=== PATIENT | male | born 1995 | race Caucasian/White ===

== ENCOUNTER 2016-11-20 05:24 | Day surgery (SDC) | payer OTHER ==
[2016-11-19 09:54] VITALS: BMI 27.2
[~2016-11-20] VITALS: Ht 182.9 cm; Wt 95.6 kg
[2016-11-20 05:50] VITALS: Ht 182.9 cm; Wt 95.6 kg
[2016-11-20 05:55] VITALS: BP 135/84; PULSE 66; RESP 18
[2016-11-20] MEDS ORDERED: CEFAZOLIN 2 GM/50 ML (PMX) 50 ML IVPB ONE (06:05)
[2016-11-20] MEDS ORDERED: TRIAMCINOLONE ACET 40 MG/ML INJ ONE (07:06)
[2016-11-20] MEDS ORDERED: BUPIVACAINE 0.25% (MPF) 30 ML INJ ONE (07:06)
[2016-11-20] MEDS ORDERED: GENTAMICIN 80 MG INJ ONE (07:06)
[2016-11-20] MEDS ORDERED: LIDOCAINE 1%/EPI 30 ML INJ ONE (07:06)
[2016-11-20] MEDS ORDERED: POLYMYXIN/BACITRACIN 1L IRRIG ONE (07:07)
[2016-11-20] MEDS ORDERED: MUPIROCIN 2% 15 GM CR ONE (07:07)
[2016-11-20] MEDS ORDERED: FENTAnyl 50 MCG/ML VIAL ONE (07:22)
[2016-11-20] MEDS ORDERED: PROPOFOL 20 ML ONE ×2 (07:22→08:17)
[2016-11-20] MEDS ORDERED: MIDAZOLAM 1 MG/ML 2 ML INJ ONE (07:22)
--- NOTE | 2016-11-20 07:45 | HPN ---
Date/Time of Note Date/Time of Note DATE: 11/20/16 TIME: 07:44 Interval H&P Admission Note Pt. seen H&P reviewed: No system changes ALON PHIPPS MD Nov 20, 2016 07:45
[2016-11-20] MEDS ORDERED: METOCLOPRAMIDE 10 MG INJ ONE (07:57)
[2016-11-20] MEDS ORDERED: DEXAMETHASONE 4 MG/ML 1 ML INJ ONE (07:57)
[2016-11-20] MEDS ORDERED: KETOROLAC 30 MG INJ ONE (07:57)
[2016-11-20] MEDS ORDERED: ONDANSETRON 4 MG INJ ONE (07:57)
[2016-11-20] MEDS ORDERED: CEFAZOLIN 1 GM INJ ONE (07:57)
[2016-11-20] MEDS: LACTATED RINGER'S 1,000 ML IV* SCH ×2 (08:24→09:06)
[2016-11-20] MEDS ORDERED: METOCLOPRAMIDE 10 MG INJ IV PRN (08:30)
[2016-11-20] MEDS ORDERED: DIPHENHYDRAMINE 50 MG INJ IV PRN (08:30)
[2016-11-20] MEDS ORDERED: MEPERIDINE 25 MG INJ IV PRN (08:30)
[2016-11-20] MEDS ORDERED: morphine (1 MG/ML) 10ML SYRINGE IV PRN ×3 (08:30)
[2016-11-20] MEDS ORDERED: ONDANSETRON 4 MG INJ IV PRN (08:30)
[2016-11-20] MEDS ORDERED: HYDROmorphONE (0.2 MG/ML) 10ML SYG IV PRN ×3 (08:30)
[2016-11-20 09:07] VITALS: BP 110/68; PULSE 70; RESP 14
[2016-11-20 09:12] VITALS: BP 112/69; PULSE 48; RESP 16
[2016-11-20 09:17] VITALS: BP 113/77; PULSE 50; RESP 16
--- NOTE | 2016-11-20 09:20 | OPPN ---
Date/Time of Note Date/Time of Note DATE: 11/20/16 TIME: 09:03 Operative/Procedure Note 10 ml. of local anesthetic solution was used,containing o.125% Marcaine, 0.5% Lidocaine, and 1/200,000 Epinephrin Pre-Operative Diagnosis Enlarging Tumor Left Forehead Post-Operative Diagnosis Same Procedure Excision tumor Left Forehead (3.1 cm. X 1.9 cm.), and Fasciocutaneous Flap Repair Surgeon: ALON PHIPPS MD Anesthesiologist: ANTONIO COON MD Findings Multilocular cystic structure with extensions deep to the muscle, completely excised Implants/Grafts: Not applicable Estimated blood loss: 0 - 10 ml's Drains: Not applicable Specimens Tumor Left Forehead, Sent in Formalin for permanent section Complications: None Anesthesia type: sedation ALON PHIPPS MD Nov 20, 2016 09:14
[2016-11-20 09:22] VITALS: BP 114/77; PULSE 67; RESP 16
[2016-11-20] MEDS ORDERED: OXYCODONE/ACETAMINOPHEN (5/325) TAB PO PRN (09:30)
[2016-11-20 09:40] VITALS: BP 120/78; PULSE 58; RESP 16
--- NOTE | 2016-11-20 11:02 | OPR ---
DATE OF OPERATION: 11/20/2016 PREOPERATIVE DIAGNOSIS: Enlarging tumor, left forehead. POSTOPERATIVE DIAGNOSIS: Enlarging tumor, left forehead. OPERATION PERFORMED: Excision of tumor, left forehead (3.1 cm x 1.9 cm) and fasciocutaneous flap reconstruction. SURGEON: Alon Edward MD [employer] NETWORK ADMINISTRATOR: None. ANESTHESIA: Monitored anesthesia care with intravenous sedation and local anesthetic infiltration. ANESTHESIOLOGIST: Cullen Chun MD LOCAL ANESTHETIC INFILTRATION: 10 mL of 0.5% lidocaine, 0.125% Marcaine and 1: 200,000 epinephrine solution. ESTIMATED BLOOD LOSS: 10 mL. DRAINS: None. SPECIMEN: Tumor, left forehead sent to pathology in formalin for permanent sections. DRAINS: None. FINDINGS: Multilocular cystic structure with extensions deep to the muscle, completely excised. DRESSING: Mastisol, Steri-Strip, Bactroban cream, dry sterile dressing and Tegaderm. OPERATIVE PROCEDURE: Patient received 2 grams of intravenous Ancef as preoperative antibiotic. Also, with the patient in sitting position, markings were made in the holding area for the planned procedure. In the operating room with the patient in supine position, following adequate monitoring and induction of adequate level of monitored anesthesia care with intravenous sedation by Dr. Chun, anesthesiologist, adequate amount of local anesthetic solution was injected at the base and periphery of operative area in order to provide pain control. Following routine prep and drape, operation was begun by excision of an elliptical portion of the skin overlying the tumor that was attached to the tumor. This incision was deepened through subcutaneous tissue and around the tumor that was found to be a cystic structure, with extensions deep to the frontalis muscle. This tumor was completely dissected and excised and sent to pathology in formalin for permanent slides. Operative area was irrigated using copious amount of triple antibiotic solution. At this time, primary intention was noted to cause significant skin dimpling and deformity as well as concern for postoperative dehiscence. Therefore, following control of all bleeders and assurance of adequate hemostasis, using 5-0 and 4-0 Monocryl sutures, a double advancement fasciocutaneous flap was elevated and advanced that assisted with tension-free closure and reconstruction of the defect with the least deformity. Interrupted and continuous stitches of 4-0 and 5-0 Monocryl were used to inset the flap. Repair was found to be satisfactory upon its completion. Dressing was applied as mentioned above. The patient tolerated this procedure very well and left the operating room to the recovery room awake, stable and in comfortable satisfactory and stable condition. Dictated By: ALON ANN/JENIFER Conf#: [id number] DID#: [id number] MTDD
== END 2016-11-20 10:30 | disposition home or self-care (01) ==
LOC: SDS 05:24
PROVIDERS: ATTEND Plastic Surgery
DX: D48.5 Neoplasm of uncertain behavior of skin (principal)
CPT/HCPCS: 11446; 15732; 88304; J0690; J1100; J1580; J1885; J2250; J2405; J2765; J3010; J3301; Z7512; Z7610